=== PATIENT | female | born 1980 | race Caucasian/White ===

== ENCOUNTER 2021-01-16 14:02 | Emergency (ER) | payer OTHER, SELFPAY ==
[2021-01-16] VITALS (7 sets, daily range): BP systolic 127–133; BP diastolic 84–89; PULSE 81–106; RESP 18–19; TEMP 37.7; O2SAT 97–100
--- NOTE | 2021-01-16 17:22 | ED_ITS ---
HPI - Abdominal Pain General: Chief Complaint: Abdominal Pain Stated Complaint: Abd Pain Time Seen by Provider: 01/16/21 17:20 History of Present Illness: HPI narrative: Patient reports having episodes of nausea and vomiting for about 1 year, patient reports a lot of burning in the chest and related to reflux. Wednesday patient started having more frequent episodes of nausea and vomiting with daily occurrence. Patient reports today patient started having worsening symptoms with not being able to hold anything down and having increase and epigastric abdominal pain. Patient denies any prior abdominal surgeries or any chronic medical problems except for some mild depression. MD elicited complaint: abdominal pain Pain Consistency: intermittent Radiation: epigastric Associated Symptoms: Reports nausea and vomiting Review of Systems General: Reports: 10 or more systems reviewed and unremarkable except in HPI and below GI: Reports: abdominal pain, nausea and vomiting Physical Exam Const: COMMON NORMALS: no acute distress and patient oriented x3 GENERAL APPEARANCE: cooperative HENMT: COMMON NORMALS: normocephalic, TM's normal bilaterally and Normal external nose present HEAD & SCALP: normal to inspection and normocephalic NOSE: Normal external nose present TYMPANIC MEMBRANE: TM's normal bilaterally MOUTH: Normal oral and palatal mucosa present THROAT: posterior oropharynx normal Eye: GENERAL EYE: appearance normal, both eyes and all related structures Neck/C-Spine: COMMON NORMALS: full ROM Lymph: LYMPHATIC: no lymphadenopathy noted Chest: COMMONS NORMALS: normal inspection of the chest Resp: COMMON NORMALS: normal respiratory effort EFFORT & INSPECTION: Yes able to speak in complete sentences Cardio: COMMON NORMALS: regular rate and regular rhythm RATE: regular rate RHYTHM: regular rhythm GI: AUSCULTATION: Yes Hypoactive bowel sounds present PALPATION: Yes Firmness to palpation present (GI), Yes Tenderness to palpation present (GI) and Yes Guarding due to palpation present (GI) : BLADDER/KIDNEY EXAM: Yes CVA tenderness bilateral Back/Pelvis: COMMON NORMALS: thoracic and lumbar spine normal to inspection GENERAL BACK: Yes CVA tenderness Extremity: COMMON NORMALS: normal to inspection Neuro: COMMON NORMALS: patient oriented x3 and moves all extremities Psych: COMMON NORMALS: mental status grossly normal and cooperative Skin: COMMON NORMALS: no rashes or lesions noted GENERAL SKIN EXAM: no rashes or lesions noted Course ED course: 1745, laboratory reported to me that serum was very lipemic and appeared white in color. 1930, reviewed patient's labs with Dr. Rios. He stated that patient may go home and she is able to hold down fluids. Patient has been able to hold down fluids since the first liter of IV fluids. We will go ahead and repeat another level of IV fluids. I reviewed this with patient who agreed to plan. Vital Signs: Vital signs: Vital Signs Temperature 99.8 F H 01/16/21 14:13 Pulse Rate 82 01/16/21 19:46 Respiratory Rate 18 01/16/21 19:42 Blood Pressure 127/86 01/16/21 19:46 Pulse Oximetry 100 01/16/21 19:46 MDM - Abdominal Pain MDM Narrative: Medical decision making narrative: Patient comes in today with episodes of nausea and vomiting since Wednesday. Patient reports today she was unable to hold down any food and had several episodes of vomiting. On exam abdomen is tender in the midepigastric region. Bowel sounds are present. Skin is warm and dry. Vital signs are normal except for some elevation in pulse rate and a 99.8 temperature. Differential diagnosis includes but not limited to cholecystitis, pancreatitis, duodenitis, appendicitis. Laboratory values noted to a lactic of 2.4, lipase of 410, triglycerides of 5200, CBC had normal white blood cell count, sodium was 129 on CMP, glucose was 104. Patient had significant improvement after 1 L of IV fluids. Patient was able to tolerate oral fluids. CT scan of the abdomen and pelvis noted fluid around the pancreas suggesting pancreatitis. Ultrasound of the abdomen indicated no cholecystitis or cholelithiasis, and common bile duct was open. Further discussion with eva nuno does admit that she does drink daily at least 4 drinks a day. I reviewed treatment with pancreatitis with recommendations for clear liquid diet until pain is resolved. Patient will be prescribed medication to help with pain and nausea and vomiting. Patient reported understanding and agreed to plan. I reviewed this plan with Dr. Rios who is who agreed as long as patient was able to tolerate oral fluids. I also reviewed with patient need for follow-up regarding her triglyceride level and repeat labs. Patient reported understanding with need for follow-up. Lab Data: Labs: Lab Results 01/16/21 01/16/21 01/16/21 Range/Units 17:19 17:28 17:28 WBC 6.0 (4.0-10.0) 10^3/ uL RBC 3.44 L (4.1-5.3) 10^6/u L Hgb 12.5 (11.5-15.3) g/dL Hct 36.2 L (37.0-47.0) % MCV 105.2 H (81-99) fL MCH 36.3 H (28.0-34.0) pg MCHC 34.5 (30.0-36.0) g/dL RDW 12.7 (12.1-15.1) % Plt Count 221 (130-400) 10^3/c mm MPV 10.8 H (7.4-10.4) fL Neut % (Auto) 72.6 % Lymph % (Auto) 20.1 % Coos % (Auto) 4.2 % Eos % (Auto) 2.3 % Baso % (Auto) 0.3 % Neut # (Auto) 4.33 (1.8-7.7) 10^3/u L Lymph # (Auto) 1.2 (0.8-4.8) 10^3/u L Coos # (Auto) 0.3 (0.2-0.9) 10^3/u L Eos # (Auto) 0.1 (0.0-0.8) 10^3/u L Baso # (Auto) 0.0 (0.0-0.1) 10^3/u L Nucleated RBC % (a uto) 0.3 % Nucleated RBCs # 0.0 /100WBC Sodium 129 L (136-145) mmol/L Potassium 4.3 (3.5-5.1) mmol/L Chloride 91 L (98-107) mmol/L Carbon Dioxide 21 L (22-29) mmol/L Anion Gap 21.3 H (5-19) BUN 17 (6-20) mg/dL Creatinine 0.6 (0.5-0.9) mg/dL GFR Calculation 109.6 (90-130) mL/min Glucose 104 (65-115) mg/dL Calculated Osmolal ity 270 L (285-295) mOsm/k g Lactic Acid (0.5-2.2) mmol/L Calcium 7.4 L (8.5-10.5) mg/dL Total Bilirubin 1.2 (0.15-1.2) mg/dL AST 192 H (0-32) U/L ALT 101 H (0-33) U/L Alkaline Phosphata se 181 H (35-105) IU/L Total Protein 6.3 L (6.6-8.7) g/dL Albumin 3.5 (3.5-5.2) g/dL Globulin 2.8 (1.3-4.6) g/dL Triglycerides 5290 H (0-150) mg/dL Lipase (13-60) U/L HCG, Qual (Negative) Urine Color (Yellow) Urine Appearance (CLEAR) Urine pH (5-7) Ur Specific Gravit y (1.005-1.030) Urine Protein (Negative) Urine Glucose (UA) (Normal) Urine Ketones (Negative) Urine Blood (Negative) Urine Nitrate (Negative) Urine Bilirubin (Negative) Urine Urobilinogen (Negative) mg/dL Ur Leukocyte Holly ase (Negative) 01/16/21 01/16/21 01/16/21 Range/Units 17:28 17:28 18:10 WBC (4.0-10.0) 10^3/ uL RBC (4.1-5.3) 10^6/u L Hgb (11.5-15.3) g/dL Hct (37.0-47.0) % MCV (81-99) fL MCH (28.0-34.0) pg MCHC (30.0-36.0) g/dL RDW (12.1-15.1) % Plt Count (130-400) 10^3/c mm MPV (7.4-10.4) fL Neut % (Auto) % Lymph % (Auto) % Coos % (Auto) % Eos % (Auto) % Baso % (Auto) % Neut # (Auto) (1.8-7.7) 10^3/u L Lymph # (Auto) (0.8-4.8) 10^3/u L Coos # (Auto) (0.2-0.9) 10^3/u L Eos # (Auto) (0.0-0.8) 10^3/u L Baso # (Auto) (0.0-0.1) 10^3/u L Nucleated RBC % (a uto) % Nucleated RBCs # /100WBC Sodium (136-145) mmol/L Potassium (3.5-5.1) mmol/L Chloride (98-107) mmol/L Carbon Dioxide (22-29) mmol/L Anion Gap (5-19) BUN (6-20) mg/dL Creatinine (0.5-0.9) mg/dL GFR Calculation (90-130) mL/min Glucose (65-115) mg/dL Calculated Osmolal ity (285-295) mOsm/k g Lactic Acid 2.4 H (0.5-2.2) mmol/L Calcium (8.5-10.5) mg/dL Total Bilirubin (0.15-1.2) mg/dL AST (0-32) U/L ALT (0-33) U/L Alkaline Phosphata se (35-105) IU/L Total Protein (6.6-8.7) g/dL Albumin (3.5-5.2) g/dL Globulin (1.3-4.6) g/dL Triglycerides (0-150) mg/dL Lipase 410 H (13-60) U/L HCG, Qual Negative (Negative) Urine Color (Yellow) Urine Appearance (CLEAR) Urine pH (5-7) Ur Specific Gravit y (1.005-1.030) Urine Protein (Negative) Urine Glucose (UA) (Normal) Urine Ketones (Negative) Urine Blood (Negative) Urine Nitrate (Negative) Urine Bilirubin (Negative) Urine Urobilinogen (Negative) mg/dL Ur Leukocyte Holly ase (Negative) 01/16/21 Range/Units 18:20 WBC (4.0-10.0) 10^3/ uL RBC (4.1-5.3) 10^6/u L Hgb (11.5-15.3) g/dL Hct (37.0-47.0) % MCV (81-99) fL MCH (28.0-34.0) pg MCHC (30.0-36.0) g/dL RDW (12.1-15.1) % Plt Count (130-400) 10^3/c mm MPV (7.4-10.4) fL Neut % (Auto) % Lymph % (Auto) % Coos % (Auto) % Eos % (Auto) % Baso % (Auto) % Neut # (Auto) (1.8-7.7) 10^3/u L Lymph # (Auto) (0.8-4.8) 10^3/u L Coos # (Auto) (0.2-0.9) 10^3/u L Eos # (Auto) (0.0-0.8) 10^3/u L Baso # (Auto) (0.0-0.1) 10^3/u L Nucleated RBC % (a uto) % Nucleated RBCs # /100WBC Sodium (136-145) mmol/L Potassium (3.5-5.1) mmol/L Chloride (98-107) mmol/L Carbon Dioxide (22-29) mmol/L Anion Gap (5-19) BUN (6-20) mg/dL Creatinine (0.5-0.9) mg/dL GFR Calculation (90-130) mL/min Glucose (65-115) mg/dL Calculated Osmolal ity (285-295) mOsm/k g Lactic Acid (0.5-2.2) mmol/L Calcium (8.5-10.5) mg/dL Total Bilirubin (0.15-1.2) mg/dL AST (0-32) U/L ALT (0-33) U/L Alkaline Phosphata se (35-105) IU/L Total Protein (6.6-8.7) g/dL Albumin (3.5-5.2) g/dL Globulin (1.3-4.6) g/dL Triglycerides (0-150) mg/dL Lipase (13-60) U/L HCG, Qual (Negative) Urine Color Yellow (Yellow) Urine Appearance Clear (CLEAR) Urine pH 6 (5-7) Ur Specific Gravit y 1.015 (1.005-1.030) Urine Protein Neg (Negative) Urine Glucose (UA) Norm (Normal) Urine Ketones Negative (Negative) Urine Blood Neg (Negative) Urine Nitrate Negative (Negative) Urine Bilirubin Neg (Negative) Urine Urobilinogen 1 H (Negative) mg/dL Ur Leukocyte Holly ase Negative (Negative) Discharge Plan Discharge Patient Disposition: Home Clinical Impression: Pancreatitis Qualifiers: Chronicity: acute Pancreatitis type: alcohol induced Acute pancreatitis complication: unspecified Qualified Code(s): K85.20 - Alcohol induced acute pancreatitis without necrosis or infection Condition: Stable Prescriptions: New hydrocodone-acetaminophen 5-325 mg tablet 1 tab PO Q6H PRN (Reason: pain (scale score 7-10)) Qty: 10 RF: 0 ondansetron 4 mg tablet,disintegrating 4 mg PO Q6H PRN (Reason: nausea and vomiting) Qty: 14 RF: 0 No Action escitalopram oxalate 10 mg tablet 10 mg PO DAILY RF: 0 Discharge Orders: Discharge ED (Routine); Ordered 01/16/21 Ordered By: Philippe Grace Discharge Diet: Clear Liquid Patient Instructions: Opioid Safety Activity Restrictions/Additional Instructions: Home and rest. Drink plenty of fluids. Avoid alcohol consumption. Stay on a clear liquid diet until pain completely resolves. Then start adding back full liquids to a bland diet. Follow-up with primary care in 3 to 5 days for recheck. You need to have repeat labs to recheck your triglycerides fasting. Return to the emergency department for worsening pain, high fever, or inability to hold any fluids down. Coding Level of Care Code ED Licensed Retail Supervisor for Aruna Rondon Exam Comprehensive
--- NOTE | 2021-01-16 17:29 | CTR_ITS ---
PROCEDURE INFORMATION: Exam: CT Abdomen And Pelvis With Contrast Exam date and time: 01/16/2021 5:29 PM Age: 40 years old Clinical indication: Nausea and vomiting; Abdominal pain; Epigastric; Additional info: Abd pain, n/v TECHNIQUE: Imaging protocol: Computed tomography of the abdomen and pelvis with contrast. Radiation optimization: All CT scans at this facility use at least one of these dose optimization techniques: automated exposure control; mA and/or kV adjustment per patient size (includes targeted exams where dose is matched to clinical indication); or iterative reconstruction. Contrast material: OMNI 300; Contrast volume: 95 ml; Contrast route: INTRAVENOUS (IV); COMPARISON: No relevant prior studies available. RADIATION DOSE METRICS: Total DLP (mGy-cm): 764.19 FINDINGS: Liver: Hepatic steatosis. Gallbladder and bile ducts: Gallbladder is somewhat prominent, ultrasound could further characterize this. Pancreas: Moderate amount of nonlocalized fluid in the right to mid abdomen, somewhat centered about the pancreas with a somewhat edematous appearing pancreas, potentially reflecting an underlying pancreatitis and/or duodenitis, please correlate clinically. Spleen: Normal. No splenomegaly. Adrenal glands: Normal. No mass. Kidneys and ureters: Normal. No hydronephrosis. Stomach and bowel: Unremarkable. No obstruction. No mucosal thickening. Appendix: No evidence of appendicitis. Intraperitoneal space: Unremarkable. No free air. No significant fluid collection. Vasculature: Unremarkable. No abdominal aortic aneurysm. Lymph nodes: Unremarkable. No enlarged lymph nodes. Urinary bladder: Unremarkable as visualized. Reproductive: IUD in the uterine cavity. Bones/joints: Unremarkable. No acute fracture. Soft tissues: Unremarkable. CT/CT abdomen pelvis w con* [id number] IMPRESSION: 1. Moderate amount of nonlocalized fluid in the right to mid abdomen, somewhat centered about the pancreas with a somewhat edematous appearing pancreas, potentially reflecting an underlying pancreatitis and/or duodenitis, please correlate clinically. 2. Gallbladder is somewhat prominent, ultrasound could further characterize this. 3. IUD in the uterine cavity. 4. Hepatic steatosis. Radiation Dose CTDIVOL = (mGy): DLP = 764.19 (mGy-cm)
[2021-01-16] MEDS: sodium chloride 0.9% 1,000 ML 999 ML IV ×2 (17:30→19:43)
[2021-01-16] MEDS: ondansetron 2 mg/ML SDV 2 mL 4 MG IVP (17:30)
[2021-01-16] MEDS: ketorolac 30 mg/mL INJ 15 MG IVP (17:36)
--- NOTE | 2021-01-16 17:47 | USR_ITS ---
PROCEDURE INFORMATION: Exam: US Abdomen, Limited; Right Upper Quadrant Exam date and time: 01/16/2021 5:47 PM Age: 40 years old Clinical indication: Abdominal pain; Acute; Additional info: Epigastric pain, n/v, probable pancreatitis/cholecystitis TECHNIQUE: Imaging protocol: US abdomen. Real time ultrasound with image documentation. Limited exam focused on the right upper quadrant. COMPARISON: CT abdomen pelvis w con* [id number] 01/16/2021 6:25 PM FINDINGS: Liver: Normal. No masses. Gallbladder: Normal. No gallstones. There is no gallbladder wall thickening. Common bile duct: Normal. No stones. No dilation. Pancreas: Visualized pancreas is unremarkable. Right kidney: Normal. No mass. No hydronephrosis. US/US abdomen limited [id number] IMPRESSION: Negative for cholelithiasis or cholecystitis.
[2021-01-16 17:56] LABS: HCG, Serum Qual Negative (Negative)
[2021-01-16 18:04] LABS: Basophils % 0.3 %; Eosinophils # 0.1 10^3/uL (0.0-0.8); Eosinophils % 2.3 %; Hematocrit 36.2 % (37.0-47.0); Hemoglobin 12.5 g/dL (11.5-15.3); Lymphocytes # 1.2 10^3/uL (0.8-4.8); Lymphocytes % 20.1 %; Mean Corpuscular HGB Conc 34.5 g/dL (30.0-36.0); Mean Corpuscular Hemoglobin 36.3 pg (28.0-34.0); Mean Corpuscular Volume 105.2 fL (81-99); Mean Platelet Volume 10.8 fL (7.4-10.4); Monocytes # 0.3 10^3/uL (0.2-0.9); Monocytes % 4.2 %; Neutrophils # 4.33 10^3/uL (1.8-7.7); Neutrophils % 72.6 %; Nucleated Red Blood Cells % 0.3 %; Red Blood Count 3.44 10^6/uL (4.1-5.3); Red Cell Distribution Width 12.7 % (12.1-15.1)
[2021-01-16 18:07] LABS: Platelet Count 221 10^3/cmm (130-400)
[2021-01-16 18:27] LABS: Add Urine Microscopic? NO; Charge for UA Resulting for Rev
[2021-01-16] MEDS: iohexol 300 mg/mL 100 mL Btl IV (18:29)
[2021-01-16 18:36] LABS: Bilirubin Urine Neg (Negative); Blood Urine Neg (Negative); Glucose Urine UA Norm (Normal); Ketones Urine Negative (Negative); Leukocyte Esterase Urine Negative (Negative); Nitrate Urine Negative (Negative); Protein Urine Neg (Negative); Specific Gravity, Urine 1.015 (1.005-1.030); Urine Appearance Clear (CLEAR); Urine Color Yellow (Yellow); Urobilinogen Urine 1 mg/dL (Negative); pH Urine 6 (5-7)
[2021-01-16 19:15] LABS: Alanine Aminotransferase 101 U/L (0-33); Albumin Level 3.5 g/dL (3.5-5.2); Alkaline Phosphatase 181 IU/L (35-105); Aspartate Amino Transferase 192 U/L (0-32); Calcium 7.4 mg/dL (8.5-10.5); Carbon Dioxide 21 mmol/L (22-29); Chloride 91 mmol/L (98-107); Globulin 2.8 g/dL (1.3-4.6); Glomerular Filtration Rate 109.6 mL/min (90-130); Glucose 104 mg/dL (65-115); Osmolality Calculated 270 mOsm/kg (285-295); Total Bilirubin 1.2 mg/dL (0.15-1.2); Total Protein 6.3 g/dL (6.6-8.7)
[2021-01-16 19:16] LABS: Anion Gap 21.3 (5-19); Potassium 4.3 mmol/L (3.5-5.1); Sodium 129 mmol/L (136-145)
[2021-01-16 19:17] LABS: Blood Urea Nitrogen 17 mg/dL (6-20)
[2021-01-16 19:22] LABS: Triglycerides 5290 mg/dL (0-150)
[2021-01-16 19:23] LABS: Lipase 410 U/L (13-60)
[2021-01-16 19:23] LABS: Lactic Sepsis W/Reflex 2.4 mmol/L (0.5-2.2)
[2021-01-16] MEDS: morphine 4 mg/mL SDV 1 mL 2 MG IVP (19:42)
[2021-01-16 19:58] LABS: Reflex Lactate Order REFLEX LACTIC ORDERD
== END 2021-01-16 20:16 | disposition home or self-care (01) ==
PROVIDERS: Family Medicine; Emergency Provider Nurse Practitioner Family
DX: K85.20 Alcohol induced acute pancreatitis without necrosis or infection (principal)
CPT/HCPCS: 74177; 76705; 80053; 81003; 83605; 83690; 84478; 84703; 85025; 87040; 96361; 96374; 96375; 99284; J1885; J2270; J2405; J7030; Q9967

== ENCOUNTER 2021-01-17 07:52 | Observation (INO) | payer OTHER, SELFPAY ==
[2021-01-17] VITALS (10 sets, daily range): BP systolic 107–125; BP diastolic 70–100; PULSE 90–104; RESP 16–18; TEMP 36.9–37.6; O2SAT 95–100
--- NOTE | 2021-01-17 08:21 | W.ED.ABDPA2 ---
HPI - Abdominal Pain General: Chief Complaint: Abdominal Pain Stated Complaint: Dizzy, N/v, Pain in ABD Time Seen by Provider: 01/17/21 08:03 History of Present Illness: HPI narrative: 40-year-old female seen last night for pancreatitis CT and last night's notes or labs reviewed. She reports continued pain. She took one of the pain pills she was prescribed last night it seemed actually make things worse and upset her stomach she has increasing pain with nausea and vomiting unable to keep anything down. She denies any hematemesis or coffee-ground denies any dysuria urgency or frequency no chest pain. This was precipitated by a episode of binge drinking. She has had a history of alcohol abuse in the past. She continues to drink with the exception of this episode of pancreatitis which is keeping her from being able to drink because of the pain. MD elicited complaint: abdominal pain Onset (ago): hour(s) Pain Consistency: constant Location: LUQ Severity: moderate Quality: cramping Exacerbating factors: eating Relieving factors: rest Associated Symptoms: Denies bloating, chills, coffee ground emesis, constipation, diarrhea, dysuria, fever(s), hematochezia, hematemesis, melena, nausea and vomiting Review of Systems Const: Denies: fever(s), chills, body aches, change in appetite, fatigue or malaise ENMT: Denies: throat pain, ear or mastoid pain, nasal discharge or nasal congestion Card: Denies: chest pain, edema, dyspnea on exertion or orthopnea Resp: Denies: dyspnea, productive cough or non-productive cough GI: Denies: abdominal pain, nausea, vomiting, hematemesis, coffee ground emesis, diarrhea, constipation, bloating, hematochezia or melena : Denies: flank pain, difficulty voiding, dysuria, urinary frequency or urinary urgency Skin/Breast: Denies: rash or pruritus PFSH ED PFSH: Medical History (Updated 01/20/21 @ 03:28 by Sherwin Rodgers DO) Hypertriglyceridemia Hypocalcemia Pancreatitis Physical Exam Const: COMMON NORMALS: no acute distress GENERAL APPEARANCE: cooperative and comfortable ORIENTATION/CONSCIOUSNESS: Yes awake, Yes oriented to person, Yes oriented to place and Yes oriented to time HENMT: COMMON NORMALS: normocephalic, atraumatic and hearing grossly normal bilaterally HEAD & SCALP: normocephalic and atraumatic Neck/C-Spine: COMMON NORMALS: no JVD Resp: COMMON NORMALS: normal respiratory effort, No retractions, No use of accessory muscles and clear to auscultation bilaterally AUSCULTATION: clear to auscultation bilaterally Cardio: COMMON NORMALS: no JVD, regular rate, regular rhythm and No murmurs present (Cardio) RATE: regular rate RHYTHM: regular rhythm GI: AUSCULTATION: Yes Hypoactive bowel sounds present PALPATION: Yes Tenderness to palpation present (GI) and No Guarding due to palpation present (GI) Extremity: COMMON NORMALS: normal to inspection, capillary refill normal, no clubbing, cyanosis or edema, no calf tenderness and no pedal edema Neuro: SENSORIUM/ORIENTATION: Yes oriented to person, Yes oriented to place and Yes oriented to time Skin: COMMON NORMALS: no rashes or lesions noted GENERAL SKIN EXAM: no rashes or lesions noted Course Vital Signs: Vital signs: Vital Signs Temperature 98.8 F 01/18/21 16:09 Pulse Rate 97 01/18/21 16:09 Respiratory Rate 18 01/18/21 16:09 Blood Pressure 121/88 01/18/21 16:09 Pulse Oximetry 100 01/18/21 16:09 MDM - Abdominal Pain MDM Narrative: Medical decision making narrative: Admit for acute pancreatitis discussed with hospitalist orders written. Reviewed labs and CT with the patient. Her lipase is decreased but her CT findings are fairly significant as well as her pain. Additionally concerning is her hyponatremia inability to maintain p.o. intake. Lab Data: Labs: Lab Results 01/17/21 01/17/21 01/17/21 Range/Units 08:50 09:02 09:02 WBC 3.9 L (4.0-10.0) 10^3/ uL RBC 3.62 L (4.1-5.3) 10^6/u L Hgb 13.4 (11.5-15.3) g/dL Hct 38.3 (37.0-47.0) % MCV 105.8 H (81-99) fL MCH 37.0 H (28.0-34.0) pg MCHC 35.0 (30.0-36.0) g/dL RDW 12.6 (12.1-15.1) % Plt Count 31 L (130-400) 10^3/c mm MPV 11.4 H (7.4-10.4) fL Neut % (Auto) 80.5 % Lymph % (Auto) 15.8 % [place] % (Auto) 2.8 % Eos % (Auto) 0.3 % Baso % (Auto) 0.3 % Neut # (Auto) 3.17 (1.8-7.7) 10^3/u L Lymph # (Auto) 0.6 L (0.8-4.8) 10^3/u L [place] # (Auto) 0.1 L (0.2-0.9) 10^3/u L Eos # (Auto) 0.0 (0.0-0.8) 10^3/u L Baso # (Auto) 0.0 (0.0-0.1) 10^3/u L Nucleated RBC % (a uto) 0.5 % Nucleated RBCs # 0.0 /100WBC Sodium 131 L (136-145) mmol/L Potassium 3.7 (3.5-5.1) mmol/L Chloride 97 L (98-107) mmol/L Carbon Dioxide 23 (22-29) mmol/L Anion Gap 14.7 (5-19) BUN 7 (6-20) mg/dL Creatinine 0.6 (0.5-0.9) mg/dL GFR Calculation 109.6 (90-130) mL/min Glucose 119 H (65-115) mg/dL Calculated Osmolal ity 271 L (285-295) mOsm/k g Calcium 5.4 L* D (8.5-10.5) mg/dL Total Bilirubin 2.3 H (0.15-1.2) mg/dL AST 131 H (0-32) U/L ALT 65 H (0-33) U/L Alkaline Phosphata se 152 H (35-105) IU/L Total Protein 5.3 L (6.6-8.7) g/dL Albumin 2.7 L (3.5-5.2) g/dL Globulin 2.6 (1.3-4.6) g/dL Lipase 298 H (13-60) U/L Urine Color Yellow (Yellow) Urine Appearance Clear (CLEAR) Urine pH 5 (5-7) Ur Specific Gravit y 1.020 (1.005-1.030) Urine Protein Trace (Negative) Urine Glucose (UA) Norm (Normal) Urine Ketones 1+ H (Negative) Urine Blood Neg (Negative) Urine Nitrate Negative (Negative) Urine Bilirubin 1+ H (Negative) Urine Urobilinogen 4 H (Negative) mg/dL Ur Leukocyte Holly ase Trace H (Negative) Urine RBC None (0-2) /hpf Urine WBC 0-4 H (0-5) /hpf Ur Squamous Epith Cells 5-10 H (0-5) /hpf Amorphous Sediment Not Reportable Urine Bacteria 1+ H (NONE) /hpf Urine Mucus 2+ /hpf Discharge Plan Discharge Patient Disposition: Admitted As Inpatient Admit Provider: Deo Mary Clinical Impression: Pancreatitis, History of ETOH abuse Condition: Stable Discharge Diet: Regular Discharge Activity: Resume usual activity Coding Level of Care Code ED Internet Sales Manager for Aruna Fwd Exam Comprehensive
[2021-01-17] MEDS: sodium chloride 0.9% 1,000 ML 999 ML IV (09:00)
[2021-01-17] MEDS: ondansetron 2 mg/ML SDV 2 mL 4 MG IVP (09:01)
[2021-01-17] MEDS: morphine 4 mg/mL SDV 1 mL IVP (09:01)
[2021-01-17 09:35] LABS: Add Urine Microscopic? YES; Bacteria Urine 1+ /hpf; Bilirubin Urine 1+ (Negative); Blood Urine Neg (Negative); Glucose Urine UA Norm (Normal); Ketones Urine 1+ (Negative); Leukocyte Esterase Urine Trace (Negative); Nitrate Urine Negative (Negative); Protein Urine Trace (Negative); Urine Appearance Clear (CLEAR); Urine Color Yellow (Yellow); Urobilinogen Urine 4 mg/dL (Negative); WBC Urine 0-4 /hpf (0-5); pH Urine 5 (5-7)
[2021-01-17 09:36] LABS: Add Urine Culture? No; Mucus Urine 2+ /hpf
[2021-01-17 09:52] LABS: Basophils % 0.3 %; Eosinophils % 0.3 %; Hematocrit 38.3 % (37.0-47.0); Hemoglobin 13.4 g/dL (11.5-15.3); Lymphocytes # 0.6 10^3/uL (0.8-4.8); Lymphocytes % 15.8 %; Mean Corpuscular Volume 105.8 fL (81-99); Mean Platelet Volume 11.4 fL (7.4-10.4); Monocytes # 0.1 10^3/uL (0.2-0.9); Monocytes % 2.8 %; Neutrophils # 3.17 10^3/uL (1.8-7.7); Neutrophils % 80.5 %; Nucleated Red Blood Cells % 0.5 %; Platelet Count 31 10^3/cmm (130-400); Red Blood Count 3.62 10^6/uL (4.1-5.3); Red Cell Distribution Width 12.6 % (12.1-15.1)
[2021-01-17 10:16] LABS: Alanine Aminotransferase 65 U/L (0-33); Albumin Level 2.7 g/dL (3.5-5.2); Alkaline Phosphatase 152 IU/L (35-105); Anion Gap 14.7 (5-19); Blood Urea Nitrogen 7 mg/dL (6-20); Carbon Dioxide 23 mmol/L (22-29); Chloride 97 mmol/L (98-107); Globulin 2.6 g/dL (1.3-4.6); Glomerular Filtration Rate 109.6 mL/min (90-130); Glucose 119 mg/dL (65-115); Lipase 298 U/L (13-60); Osmolality Calculated 271 mOsm/kg (285-295); Potassium 3.7 mmol/L (3.5-5.1); Sodium 131 mmol/L (136-145); Total Bilirubin 2.3 mg/dL (0.15-1.2); Total Protein 5.3 g/dL (6.6-8.7)
[2021-01-17 10:18] LABS: Calcium 5.4 mg/dL (8.5-10.5)
--- NOTE | 2021-01-17 10:19 | US_ITS ---
WS: [id number] ULTRASOUND ABDOMEN LIMITED CLINICAL INFORMATION: lab values COMPARISON: None. FINDINGS: Liver Size: Enlarged Craniocaudal length: 21.4 cm. Echogenicity: Coarse Surface nodularity: None. Mass (size and location): None. Bile ducts Intrahepatic ducts: Normal. Common bile duct diameter: 0.5 cm. Gallbladder Fluid distended Gallstones: None. Gallbladder sludge: None. Gallbladder wall thickening: None. Pericholecystic fluid: None. Sonographic Langford sign: Absent. Pancreas Small amount of free fluid about the the pancreatic head with pancreatic edema consistent with pancre atitis. Right kidney: Small simple cortical cyst measuring 9 mm Hydronephrosis: None. Size: 11.5 cm x 5.1 cm x 5.9 cm. Abdominal aorta and IVC Visualized portions are normal. Ascites: Small amount of free fluid about the liver and right kidney. Possible dilated loop of duoden um in the right upper quadrant adjacent to the gallbladder also seen on the recent CT. US/US gall bladder [id number] IMPRESSION: 1. Marked hepatomegaly. 2. Peripancreatic fluid and edema consistent with pancreatitis as seen on the recent CT. Recommend correlation with pancreatic enzymes. This can be further e valuated with CT abdomen pelvis. 3. Fluid distended gallbladder otherwise normal. Normal common bile duct. 4. No hydronephrosis right kidney.
[2021-01-17 10:23] LABS: Slide Review Slide Review Perform; White Blood Count 3.9 10^3/uL (4.0-10.0)
[2021-01-17 10:24] LABS: Aspartate Amino Transferase 131 U/L (0-32)
--- NOTE | 2021-01-17 11:01 | CT_ITS ---
WS: [id number] CT ABDOMEN PELVIS TECHNIQUE: Contrast-enhanced CT of the abdomen and pelvis with coronal and sagittal reformatted image s. CLINICAL INFORMATION: abd pain COMPARISON: CT January 16, 2021 DLP: 791.[address] scans at [facility] use at least one of these dose optimization techniques: automat ed exposure control; mA and/or kV adjustment per patient size (includes targeted exams where dose is matched to clinical indication); or iterative reconstruction. FINDINGS: Diffuse fatty infiltration liver. Hepatomegaly. Normal portal vein and splenic vein. SMV is patent. A gain seen is diffuse peripancreatic fluid and edema with fluid extending into the right midabdomen an d right lower quadrant. Small amount of free fluid in the pelvis. Fluid is increased since the prior examination. Pancreatic head edema. In addition diffuse mucosal enhancement involving the pylorus and duodenal C-loop with distention and mucosal edema suspicious for duodenitis. Fluid distended gallbla dder. No cholelithiasis. No gallbladder wall thickening. Normal common bile duct. In addition, thickening with submucosal enhancement involving the right colon and proximal transverse colon with surrounding fluid may be reactive but also can be seen with colitis. IUD appears in good position. Left ovarian cyst measuring 3.3 CM. Normal caliber abdominal aorta. Adr enal glands are normal. Normal renal parenchymal enhancement. No hydronephrosis. Proximal celiac and SMA are patent. CT/CT abdomen pelvis w con* [id number] IMPRESSION: 1. Diffuse Peripancreatic fluid and pancreatic head edema consistent with panc reatitis. No evidence of pancreatic necrosis. 2. Increasing fluid in the right upper quadrant extending into the right midab domen with a small amount of free fluid in the pelvis. 3. Diffuse thickening with submucosal enhancement involving the duodenum suspi cious for duodenitis progressed compared to previous. 4. Diffuse thickening with submucosal enhancement involving the hepatic flexur e and proximal transverse colon may be reactive but also consider colitis. This is new from previous. 5. IUD appears in good position. 6. Left ovarian cyst measuring 3.3 cm. 7. Hepatomegaly with diffuse fatty infiltration. Notified Sherwin Rodgers DO at 01/17/2021 11:59 AM.
[2021-01-17] MEDS: morphine 4 mg/mL SDV 1 mL 8 MG IVP (11:14)
[2021-01-17] MEDS: iohexol 300 mg/mL 100 mL Btl IV (11:30)
[2021-01-17] MEDS: ciprofloxacin 400 MG/200 ML PREMIX 200 MG IV (12:27)
[2021-01-17] MEDS: HYDROmorphone 1 mg/mL INJ 1 mL IVP (12:37)
--- NOTE | 2021-01-17 13:00 | PM.HP ---
Providers/Chief Complaint Admitting Physician: Deo Mary MD Chief Complaint: Dizzy, N/v, Pain in ABD History of Present Illness Maria Del Carmen Stock is a 40 year old female with no significant PMH came in with c/o nausea,vomiting,crampy abdominal pain,which has progressively worsened over last 2-3 days.Since yesterday she had multiple episodes of non bloody vomiting.She deny any fever,cough,sob,sick contact.She does say that she drink alcohol she was not able to tell how much and for how long,was not able to tell last drink. Upon arrival in the ER she was worked up for the above mention complaint. Imaging studies : CT abdomen pelvis w con: Diffuse Peripancreatic fluid and pancreatic head edema consistent with pancreatitis. No evidence of pancreatic necrosis. Increasing fluid in the right upper quadrant extending into the right midabdomen with a small amount of free fluid in the pelvis. Diffuse thickening with submucosal enhancement involving the duodenum suspicious for duodenitis progressed compared to previous.Diffuse thickening with submucosal enhancement involving the hepatic flexure and proximal transverse colon may be reactive but also consider colitis. Hepatomegaly with diffuse fatty infiltration. US gall bladder: Marked hepatomegaly. Peripancreatic fluid and edema consistent with pancreatitis.Fluid distended gallbladder otherwise normal. Normal common bile duct. Pertinent Labs: wbc: 3.9. h/h : 13/38, plt: 221 , Na:131, k: 3.7 bun/scr : 7/0.6, AST: 131 ALP: 152 ALT : 65 , T.Bili : 2.3 , Serum zahraa:5.4 , T/G : 5290, Lipase: 410---> 298 , lactic acid :2.4 urine analysis :clean. Review of Systems Const: Denies: fever(s), chills or diaphoresis Card: Denies: palpitations, edema, swelling of feet/ankles, dyspnea on exertion, orthopnea or leg pain with exertion Resp: Denies: dyspnea, productive cough, wheezing or pain on inspiration GI: Denies: diarrhea or constipation : Denies: flank pain Musc: Denies: back pain, extremity pain or extremity swelling Neuro: Denies: headache(s), difficulty walking or confusion Medications/Allergies Home Medications Medication Instructions Recorded Confirmed Last Taken Type escitalopram oxalate 10 mg PO BEDTIME 01/16/21 01/17/21 01/15/21 History hydrocodone-acetaminophen 1 tab PO Q6H PRN #10 tab 01/16/21 01/17/21 01/16/21 Rx ondansetron 4 mg PO Q6H PRN #14 tab 01/16/21 01/17/21 01/17/21 06:30 Rx Allergies Allergy/AdvReac Type Severity Reaction Status Date / Time Penicillins Allergy ALGY-Hives Verified 01/17/21 10:13 Vitals/I&O/Wt Last Vital Signs Temp 99.6 F 01/17/21 08:01 Pulse 98 01/17/21 12:32 Resp 18 01/17/21 12:37 BP 123/84 01/17/21 12:32 Pulse Ox 98 01/17/21 12:37 01/16/21 01/17/21 01/17/21 22:59 06:59 14:59 Intake Total 1070 / 1070 Balance 1070 / 1070 Weight last 48 hrs Weight 54.431 kg Physical Exam Const: COMMON NORMALS: patient oriented x3 HENMT: COMMON NORMALS: normocephalic and atraumatic HEAD & SCALP: normocephalic and atraumatic Chest: CHEST: Yes Symmetrical chest wall rise Resp: COMMON NORMALS: clear to auscultation bilaterally EFFORT & INSPECTION: Yes symmetric chest movement AUSCULTATION: clear to auscultation bilaterally Cardio: COMMON NORMALS: regular rate, regular rhythm, S1 normal heart sound present, S2 normal heart sound present, No gallops present (Cardio), No murmurs present (Cardio), No rub (Cardio) and Peripheral pulses 2+ throughout RATE: regular rate RHYTHM: regular rhythm HEART SOUNDS: S1 normal heart sound present and S2 normal heart sound present PERIPHERAL PULSES: Peripheral pulses 2+ throughout GI: AUSCULTATION: Yes normoactive bowel sounds RECTAL EXAM: deferred OTHER: RUQ Tenderness Present,guarding present,no rebound tenderness, Extremity: COMMON NORMALS: no clubbing, cyanosis or edema and no pedal edema Neuro: COMMON NORMALS: patient oriented x3 Data : 01/17/21 09:02 01/17/21 09:02 A&P Assessment and plan (1) Pancreatitis: Acute Pancreatitis likely 2/2 to hypertriglyceridemia as well as alcohol use. NPO I.V Fluids Pain Control Status: Acute Qualifiers: Acute pancreatitis complication: unspecified Chronicity: acute Pancreatitis type: alcohol induced Qualified Code(s): K85.20 - Alcohol induced acute pancreatitis without necrosis or infection (2) Hypertriglyceridemia: Severe Hypertriglyceridemia Fasting Lipid Profile Will initiate fenofibrate Status: Acute (3) Hypocalcemia: Received 2 gm I.V calcium Monitor Serum zahraa. Status: Acute Attestations Medical Necessity Statement*: Patient needs to be in hospital for the management of acute pancreatitis. Coding Level of Care Code Acute Data Control Clerk for [facility] Diagnoses Pancreatitis K85.20 Acute pancreatitis complication: unspecified Chronicity: acute Pancreatitis type: alcohol induced Hypertriglyceridemia E78.1 Hypocalcemia E83.51
[2021-01-17] MEDS: famotidine 20 mg/2 mL INJ IVP (14:56)
[2021-01-17] MEDS: metroNIDAZOLE IV 500 MG/100 ML PREMIX 100 MG IV (14:57)
--- NOTE | 2021-01-17 16:34 | PC.NURSE ---
Report called to Rhoda JORGE, room not ready yet.
[2021-01-17] MEDS: enoxaparin 40 mg/0.4 mL Syringe SUBCUT (17:52)
[2021-01-17] MEDS: sodium chloride 0.9% 1,000 ML 75 ML IV (17:52)
[2021-01-17] MEDS: oxyCODONE-APAP 10-325 mg Tablet 1 TAB PO (21:17)
[2021-01-18] MEDS: famotidine 20 mg/2 mL INJ IVP ×2 (01:48→13:29)
[2021-01-18 02:52] LABS: Basophils % 0.7 %; Eosinophils % 0.5 %; Hematocrit 37.8 % (37.0-47.0); Hemoglobin 13.7 g/dL (11.5-15.3); Lymphocytes # 0.8 10^3/uL (0.8-4.8); Lymphocytes % 17.3 %; Mean Corpuscular HGB Conc 36.2 g/dL (30.0-36.0); Mean Corpuscular Hemoglobin 37.7 pg (28.0-34.0); Mean Corpuscular Volume 104.1 fL (81-99); Monocytes # 0.1 10^3/uL (0.2-0.9); Monocytes % 2.3 %; Neutrophils # 3.48 10^3/uL (1.8-7.7); Nucleated Red Blood Cells % 0 %; Platelet Count 150 10^3/cmm (130-400); Red Blood Count 3.63 10^6/uL (4.1-5.3); Red Cell Distribution Width 12.9 % (12.1-15.1); White Blood Count 4.4 10^3/uL (4.0-10.0)
[2021-01-18 03:40] VITALS: BP 108/75; PULSE 90; RESP 16; TEMP 37.5; O2SAT 98
[2021-01-18 03:57] LABS: Slide Review Slide Review Perform
[2021-01-18 04:01] LABS: Chol HDL Ratio 83.67 mg/dL (0.0-4.40); Cholesterol 502 mg/dL (0-200); HDL Cholesterol 6 mg/dL (60-100); Procalcitonin 0.71 ng/mL (0-0.5); Triglycerides 2248 mg/dL (0-150)
--- NOTE | 2021-01-18 04:08 | PC.NURSE ---
Patient has complaint of tingling in her face, hands legs and feet. Dr. Puga notified and ordered CMP Mag and ionized calcium.
[2021-01-18 04:09] LABS: Ionized Calcium 0.7 mmol/L (1.1-1.4)
[2021-01-18 06:58] LABS: Albumin Level 2.6 g/dL (3.5-5.2); Blood Urea Nitrogen 4 mg/dL (6-20); Carbon Dioxide 20 mmol/L (22-29); Chloride 92 mmol/L (98-107); Glomerular Filtration Rate 135.3 mL/min (90-130); Glucose 110 mg/dL (65-115); Magnesium 1.6 mg/dL (1.7-2.3); Osmolality Calculated 264 mOsm/kg (285-295); Phosphorus 1.4 mg/dL (2.5-4.5); Sodium 128 mmol/L (136-145); Total Bilirubin 1.5 mg/dL (0.15-1.2); Total Protein 5.6 g/dL (6.6-8.7)
[2021-01-18 07:10] LABS: Aspartate Amino Transferase 101 U/L (0-32)
[2021-01-18 07:24] VITALS: BP 126/86; PULSE 92; RESP 17; TEMP 36.9; O2SAT 99
[2021-01-18 08:10] LABS: LDL Cholesterol Direct 48 mg/dL (0-100)
[2021-01-18 08:29] LABS: Anion Gap 19.3 (5-19)
[2021-01-18 08:30] LABS: Alanine Aminotransferase 49 U/L (0-33); Alkaline Phosphatase 130 IU/L (35-105); Potassium 3.3 mmol/L (3.5-5.1)
[2021-01-18 08:31] LABS: Calcium 4.7 mg/dL (8.5-10.5)
[2021-01-18] MEDS: sodium chloride 0.9% 1,000 ML 75 ML IV (08:59)
[2021-01-18 11:28] VITALS: BP 121/88; PULSE 97; RESP 18; TEMP 37.1; O2SAT 100
--- NOTE | 2021-01-18 11:30 | PM.DCS ---
Discharge Providers Date of Admission: 01/17/21 13:00 Date of Discharge: January 18, 2021 Attending Provider at Admission: Deo Mary MD Attending Provider at Discharge: Deo Mary MD Diagnoses at Discharge Discharge Diagnosis (1) Pancreatitis: Status: Resolved Qualifiers: Acute pancreatitis complication: unspecified Chronicity: acute Pancreatitis type: alcohol induced Qualified Code(s): K85.20 - Alcohol induced acute pancreatitis without necrosis or infection (2) Hypertriglyceridemia: Status: Acute (3) Hypocalcemia: Status: Acute Reason for Visit Reason for Visit: Dizzy, N/v, Pain in ABD Hospital Course Hospital Course Maria Del Carmen Stock is a 40 year old female with no significant PMH came in with c/o nausea,vomiting,crampy abdominal pain,which has progressively worsened over last 2-3 days.Since yesterday she had multiple episodes of non bloody vomiting.She deny any fever,cough,sob,sick contact.She does say that she drink alcohol she was not able to tell how much and for how long,was not able to tell last drink. Upon arrival in the ER she was worked up for the above mention complaint. Imaging studies : CT abdomen pelvis w con: Diffuse Peripancreatic fluid and pancreatic head edema consistent with pancreatitis. No evidence of pancreatic necrosis. Increasing fluid in the right upper quadrant extending into the right midabdomen with a small amount of free fluid in the pelvis. Diffuse thickening with submucosal enhancement involving the duodenum suspicious for duodenitis progressed compared to previous.Diffuse thickening with submucosal enhancement involving the hepatic flexure and proximal transverse colon may be reactive but also consider colitis. Hepatomegaly with diffuse fatty infiltration. US gall bladder: Marked hepatomegaly. Peripancreatic fluid and edema consistent with pancreatitis.Fluid distended gallbladder otherwise normal. Normal common bile duct. Pertinent Labs: wbc: 3.9. h/h : 13/38, plt: 221 , Na:131, k: 3.7 bun/scr : 7/0.6, AST: 131 ALP: 152 ALT : 65 , T.Bili : 2.3 , Serum zahraa:5.4 , T/G : 5290, Lipase: 410---> 298 , lactic acid :2.4 urine analysis :clean. Patient was admitted for management of acute pancreatitis likely secondary to hypertriglyceridemia as well as alcohol use. During the hospital stay she was kept n.p.o. IV fluids and on pain control, electrolyte replacement were taken. At the time of discharge her nausea vomiting has subsided, abdominal pain was improving. Possible reason for her hypertriglyceridemia is alcohol use. She will need to follow-up with her primary care physician for further work-up of other possible causes of hypertriglyceridemia. Patient wanted to be discharged home as he wanted to take care of her kids at home. Patient was counseled regarding alcohol cessation. She responded well to the above medical management And is being discharged in stable condition. Physical Exam Const: COMMON NORMALS: patient oriented x3 HENMT: COMMON NORMALS: normocephalic and atraumatic HEAD & SCALP: normocephalic and atraumatic Chest: CHEST: Yes Symmetrical chest wall rise Resp: COMMON NORMALS: clear to auscultation bilaterally EFFORT & INSPECTION: Yes symmetric chest movement AUSCULTATION: clear to auscultation bilaterally Cardio: COMMON NORMALS: regular rate, regular rhythm, S1 normal heart sound present, S2 normal heart sound present, No gallops present (Cardio), No murmurs present (Cardio), No rub (Cardio) and Peripheral pulses 2+ throughout RATE: regular rate RHYTHM: regular rhythm HEART SOUNDS: S1 normal heart sound present and S2 normal heart sound present PERIPHERAL PULSES: Peripheral pulses 2+ throughout GI: COMMON NORMALS: Soft to palpation and non-tender AUSCULTATION: Yes normoactive bowel sounds PALPATION: Yes Soft to palpation RECTAL EXAM: deferred Extremity: COMMON NORMALS: no clubbing, cyanosis or edema and no pedal edema Neuro: COMMON NORMALS: patient oriented x3 Discharge Data Data Completed and Pending: Completed Studies During Hospitalization Category Date Time Status CT abdomen pelvis w con* [id number] Stat Cat Scan 01/17/21 11:01 Completed US gall bladder 7 [id number] Stat Ultrasound 01/17/21 10:19 Completed Pending at discharge Category Date Time Status 25 Hydroxy Vitami n D AM LABS Lab 01/19/21 04:00 Ordered Complete Blood Co unt w/Auto AM LABS Lab 01/19/21 04:00 Ordered Complete Blood Co unt w/Auto AM LABS Lab 01/20/21 04:00 Ordered Comprehensive Met abolic Panel AM LA BS Lab 01/19/21 04:00 Ordered Comprehensive Met abolic Panel AM LA BS Lab 01/20/21 04:00 Ordered Lipid Panel AM LA BS Lab 01/19/21 04:00 Ordered Parathyroid With Calcium AM LABS Lab 01/19/21 04:00 Ordered Vitamin D 1,25 Di hydroxy Routine Lab 01/19/21 05:00 Ordered Labs from last 24 hours 01/18/21 01/18/21 01/18/21 05:40 02:22 02:22 WBC RBC Hgb Hct MCV MCH MCHC RDW Plt Count MPV Neut % (Auto) Lymph % (Auto) [place] % (Auto) Eos % (Auto) Baso % (Auto) Neut # (Auto) Lymph # (Auto) [place] # (Auto) Eos # (Auto) Baso # (Auto) Nucleated RBC % (a uto) Nucleated RBCs # Sodium 128 L Potassium 3.3 L Chloride 92 L Carbon Dioxide 20 L Anion Gap 19.3 H BUN 4 L Creatinine 0.5 GFR Calculation 135.3 H Glucose 110 Calculated Osmolal ity 264 L Calcium 4.7 L* Ionized Calcium Me as 0.7 L* Phosphorus 1.4 L Magnesium 1.6 L Total Bilirubin 1.5 H AST 101 H ALT 49 H Alkaline Phosphata se 130 H Total Protein 5.6 L Albumin 2.6 L Globulin 3.0 Triglycerides 2248 H Cholesterol 502 H LDL Cholesterol Di rect 48 LDL Cholesterol, C alc Not Reportable HDL Cholesterol 6 L LDL/HDL Ratio Not Reportable Cholesterol/HDL Ra rosita 83.67 H Procalcitonin 0.71 H 01/18/21 01/18/21 02:22 02:22 WBC 4.4 RBC 3.63 L Hgb 13.7 Hct 37.8 MCV 104.1 H MCH 37.7 H MCHC 36.2 H RDW 12.9 Plt Count 150 MPV 11.0 H Neut % (Auto) 79.0 Lymph % (Auto) 17.3 [place] % (Auto) 2.3 Eos % (Auto) 0.5 Baso % (Auto) 0.7 Neut # (Auto) 3.48 Lymph # (Auto) 0.8 [place] # (Auto) 0.1 L Eos # (Auto) 0.0 Baso # (Auto) 0.0 Nucleated RBC % (a uto) 0 Nucleated RBCs # 0.0 Sodium Cancelled Potassium Cancelled Chloride Cancelled Carbon Dioxide Cancelled Anion Gap Cancelled BUN Cancelled Creatinine Cancelled GFR Calculation Cancelled Glucose Cancelled Calculated Osmolal ity Cancelled Calcium Cancelled Ionized Calcium Me as Phosphorus Cancelled Magnesium Cancelled Total Bilirubin Cancelled AST Cancelled ALT Cancelled Alkaline Phosphata se Cancelled Total Protein Cancelled Albumin Cancelled Globulin Cancelled Triglycerides Cholesterol LDL Cholesterol Di rect LDL Cholesterol, C alc HDL Cholesterol LDL/HDL Ratio Cholesterol/HDL Ra rosita Procalcitonin Vitals: Last Vital Signs Temp 98.8 F 01/18/21 11:28 Pulse 97 01/18/21 11:28 Resp 18 01/18/21 11:28 BP 121/88 01/18/21 11:28 Pulse Ox 100 01/18/21 11:28 Discharge Plan Discharge Patient Disposition: Home Condition: Stable Prescriptions: New Calcium 500 500 mg calcium (1,250 mg) tablet 500 mg PO DAILY Qty: 30 RF: 0 Ativan 2 mg tablet 2 mg PO DAILY PRN (Reason: anxiety) Qty: 7 RF: 0 Continued escitalopram oxalate 10 mg tablet 10 mg PO BEDTIME RF: 0 hydrocodone-acetaminophen 5-325 mg tablet 1 tab PO Q6H PRN (Reason: pain (scale score 7-10)) Qty: 10 RF: 0 ondansetron 4 mg tablet,disintegrating 4 mg PO Q6H PRN (Reason: nausea and vomiting) Qty: 14 RF: 0 Discharge Orders: Discharge Order (Routine); Ordered 01/18/21 Ordered By: Deo Mary Discharge Diet: Regular Discharge Activity: Resume usual activity Patient Instructions: Lorazepam (By mouth), Calcium Supplement (By mouth), Opioid Safety Discharge Attestations Time Spent in Discharge Care*: less than 30 min Specific Discharge Activities: educating patient, educating and/or supporting family/caregiver, discussing with pcp/other providers, discussing with case management social worker/social workers/dc planners, documenting/other paperwork and evaluating patient/reviewing data Status at Discharge: Cognitive status at discharge: cognitively intact, Behavioral status at discharge: cooperative, Functional status at discharge: independent ambulation Overall status at discharge: patient is back to baseline Quality Metrics Clinical Quality Measures During this hospital stay, did patient experience: None Coding Level of Care Code Acute Chg FW DC note Exam Detailed Diagnoses Pancreatitis K85.20 Acute pancreatitis complication: unspecified Chronicity: acute Pancreatitis type: alcohol induced Hypertriglyceridemia E78.1 Hypocalcemia E83.51
[2021-01-18] MEDS: LORazepam 2 mg Tablet PO (11:43)
[2021-01-18] MEDS: folic acid 1 mg Tablet PO (12:52)
[2021-01-18] MEDS: potassium chloride ER 20 mEq Tablet 40 MEQ PO (12:52)
[2021-01-18] MEDS: multivitamin therapeutic Tablet 1 TAB PO (13:46)
[2021-01-18 16:09] VITALS: BP 121/88; PULSE 97; RESP 18; TEMP 37.1; O2SAT 100
== END 2021-01-18 16:09 | disposition home or self-care (01) ==
LOC: ER 08:04 → MEDSURG 16:49
PROVIDERS: Admitting Provider Internal Medicine; Emergency Provider Family Medicine; Visit Provider Internal Medicine
DX: K85.20 Alcohol induced acute pancreatitis without necrosis or infection (principal); E78.1 Pure hyperglyceridemia; E83.51 Hypocalcemia
CPT/HCPCS: 74177; 76705; 80053; 80061; 81001; 82330; 83690; 83721; 83735; 84100; 84145; 85025; 96361; 96365; 96367; 96372; 96375; 96376; 99285; G0378; J0610; J0744; J1170; J1650; J2270; J2405; J3475; J3490; J7030; Q9967; S0030

== ENCOUNTER 2024-01-13 13:55 | Outpatient (CLI) | payer OTHER, SELFPAY ==
--- NOTE | 2024-01-13 14:08 | MM_ITS ---
WS: [id number] BILATERAL SCREENING DIGITAL TOMOSYNTHESIS MAMMOGRAM WITH CAD HISTORY: SCREENING COMPARISON: None available. Bilateral CC and MLO views with tomosynthesis and synthetic mammography submitted. Computer aided det ection analyzed. Breast composition: The breasts are extremely dense, which lowers the sensitivity of mammography. No suspicious masses, microcalcifications or architectural distortion. Dense fibroglandular tissue with benign calcifications. No suspicious grouping of calcifications. No distortion or solid mass. MM/[place] [id number] IMPRESSION: BI-RADS: 2-Benign FOLLOW UP: 1 Year Follow-up
== END 2024-01-13 13:56 | disposition home or self-care (01) ==
LOC: RAD 13:57
PROVIDERS: PCP Family Medicine; Visit Provider Family Medicine
DX: Z12.31 Encounter for screening mammogram for malignant neoplasm of breast (principal); R92.333 Mammographic heterogeneous density, bilateral breasts; R92.1 Mammographic calcification found on diagnostic imaging of breast
CPT/HCPCS: 77063; 77067